=== PATIENT | female | born 1955 | race Caucasian/White ===

== ENCOUNTER 2016-12-27 08:06 | Emergency (ER) | payer MEDICAID ==
[~2016-12-27] VITALS: Ht 182.9 cm; Wt 77.1 kg
[2016-12-27 08:30] VITALS: BP 139/67
[2016-12-27] MEDS ORDERED: DEXAMETHASONE SOD PHOSPHATE 10 MG/ML VIAL ONE (08:46)
[2016-12-27] MEDS ORDERED: DEXAMETHASONE SOD PHOSPHATE 10 MG/ML VIAL IV ONE (09:00)
== END 2016-12-27 09:04 | disposition home or self-care (01) ==
LOC: ER 08:08
DX: J20.9 Acute bronchitis, unspecified (principal); J32.9 Chronic sinusitis, unspecified; R51 Headache; J45.909 Unspecified asthma, uncomplicated; E78.00 Pure hypercholesterolemia, unspecified
CPT/HCPCS: 96374; 99284; A4606; J1100; Z7610

== ENCOUNTER 2017-04-30 12:55 | Emergency (ER) | payer MEDICAID ==
[~2017-04-30] VITALS: Ht 160 cm; Wt 61.2 kg
--- NOTE | 2017-04-30 13:22 | NUR ---
URINE OBTAINED AND SENT TO LAB
[2017-04-30 13:50] LABS: APPEARANCE,URINE Slightly Cloudy (CLEAR); BILIRUBIN,URINE Negative (NEGATIVE); BLOOD, URINE Small Ery/uL (NEGATIVE); COLOR,URINE Yellow (YELLOW); KETONES,URINE 80 (NEGATIVE); LEUKOCYTE ESTERASE ,URINE Small (NEGATIVE); NITRITE, URINE Negative (NEGATIVE); PROTEIN,URINE Trace mg/dl (NEGATIVE); UGLUCOSE Negative (NEGATIVE); UROBILINOGEN,URINE 0.2 EU/dL (0.2)
[2017-04-30 13:55] LABS: BACTERIA,URINE Few /HPF (None Seen); RBC,URINE 81-100 /HPF (0-2); SQUAMOUS EPITHELIAL CELL,UR Few /HPF (None Seen); WBC,URINE 21-50 /HPF (0-3)
[2017-04-30 14:20] VITALS: BP 126/61
--- NOTE | 2017-04-30 14:32 | NUR ---
Patient discharged to home in stable condition. Written and verbal after care instructions given. Prescription given to patient. Patient verbalizes understanding of instruction.
== END 2017-04-30 14:34 | disposition home or self-care (01) ==
LOC: ER 13:04
DX: N39.0 Urinary tract infection, site not specified (principal); E78.00 Pure hypercholesterolemia, unspecified; J45.909 Unspecified asthma, uncomplicated; M54.30 Sciatica, unspecified side; Z98.890 Other specified postprocedural states
CPT/HCPCS: 81000-TC; 87086-TC; 87186-TC; A4606; Z7610

== ENCOUNTER 2017-09-26 10:36 | Emergency (ER) | payer MEDICAID ==
[~2017-09-26] VITALS: Ht 154.9 cm; Wt 47.6 kg
[2017-09-26 10:36] VITALS: BP 157/101
[2017-09-26] MEDS ORDERED: HYDROCODONE/APAP 10/325MG 1 EA TABLET ONE (10:56)
[2017-09-26] MEDS ORDERED: HYDROCODONE/APAP 10/325MG 1 EA TABLET PO ONE (11:00)
== END 2017-09-26 11:10 | disposition home or self-care (01) ==
LOC: ER 10:37
DX: S02.609A Fracture of mandible, unspecified, initial encounter for closed fracture (principal); G89.29 Other chronic pain; E78.00 Pure hypercholesterolemia, unspecified; J45.909 Unspecified asthma, uncomplicated; M54.30 Sciatica, unspecified side; Y04.8XXA Assault by other bodily force, initial encounter; Y93.89 Activity, other specified; Y92.89 Other specified places as the place of occurrence of the external cause; Y99.8 Other external cause status
CPT/HCPCS: 99282; A4606; Z7610

== ENCOUNTER 2017-11-15 11:10 | Emergency (ER) | payer MEDICAID ==
[~2017-11-15] VITALS: Ht 154.9 cm; Wt 48.5 kg
[2017-11-15 11:24] VITALS: BP 178/89
== END 2017-11-15 12:11 | disposition home or self-care (01) ==
LOC: ER 11:11
DX: N39.0 Urinary tract infection, site not specified (principal); E78.00 Pure hypercholesterolemia, unspecified; G89.29 Other chronic pain; J45.909 Unspecified asthma, uncomplicated; F10.10 Alcohol abuse, uncomplicated; M54.40 Lumbago with sciatica, unspecified side
CPT/HCPCS: 87086; 99283; A4606; Z7610

== ENCOUNTER 2019-05-12 09:56 | Emergency (ER) | payer MEDICAID ==
[~2019-05-12] VITALS: Ht 152.4 cm; Wt 52.2 kg
[2019-05-12 09:59] VITALS: BP 122/90
[2019-05-12 10:43] LABS: APPEARANCE,URINE Clear (CLEAR); BILIRUBIN,URINE Negative (NEGATIVE); BLOOD, URINE Negative Ery/uL (NEGATIVE); COLOR,URINE Yellow (YELLOW); KETONES,URINE Negative (NEGATIVE); LEUKOCYTE ESTERASE ,URINE Negative (NEGATIVE); NITRITE, URINE Negative (NEGATIVE); PROTEIN,URINE Negative (NEGATIVE); UGLUCOSE Negative (NEGATIVE); UROBILINOGEN,URINE 0.2 EU/dL (0.2)
[2019-05-12 10:47] LABS: BASOPHILS % (AUTO) 1.1 % (0.0-2.0); EOSINOPHILS % (AUTO) 0.9 % (0.0-6.0); HEMATOCRIT 39 % (33-45); HEMOGLOBIN 13.2 g/dL (11.5-14.8); LYMPHOCYTES # (AUTO) 1.7 /CMM (0.8-4.8); LYMPHOCYTES % (AUTO) 40.5 % (20.0-44.0); MEAN CORPUSCULAR HGB CONC 34 g/dl (31.0-36.0); MEAN CORPUSCULAR VOLUME 97 fL (82-100); MONOCYTES # (AUTO) 0.4 /CMM (0.1-1.30); MONOCYTES % (AUTO) 9.3 % (2.0-12.0); NEUTROPHILS # (AUTO) 2.1 /CMM (1.8-8.9); NEUTROPHILS % (AUTO) 48.2 % (43.0-81.0); PLATELET COUNT (AUTO) 265 /CMM (150-450); WHITE BLOOD COUNT (AUTO) 4.3 K/uL (4.3-11.0)
[2019-05-12 10:48] LABS: CALCIUM, SERUM 9.2 mg/dL (8.5-10.1); CREATININE 0.9 mg/dL (0.6-1.3); POTASSIUM 4.5 mmol/L (3.5-5.1)
== END 2019-05-12 11:31 | disposition home or self-care (01) ==
LOC: ER 10:00
DX: R30.0 Dysuria (principal); E78.00 Pure hypercholesterolemia, unspecified; J45.909 Unspecified asthma, uncomplicated; Z87.440 Personal history of urinary (tract) infections
CPT/HCPCS: 36415; 80048-TC; 81000-TC; 85025-TC; 87086-TC

== ENCOUNTER 2019-10-30 08:05 | Emergency (ER) | payer MEDICAID ==
[~2019-10-30] VITALS: Ht 152.4 cm; Wt 53.5 kg
--- NOTE | 2019-10-30 08:15 | NUR ---
"Accidentally took 1tab of suboxone 8-2mg by mistake" Patient a/ox4, breathing even and unlabored, no sob noted. Needs attended, kept comfortable, attached to the surveillance system monitor.
[2019-10-30 08:42] VITALS: BP 144/87
== END 2019-10-30 08:42 | disposition home or self-care (01) ==
LOC: ER 08:07
DX: Z51.81 Encounter for therapeutic drug level monitoring (principal); E78.00 Pure hypercholesterolemia, unspecified; J45.909 Unspecified asthma, uncomplicated; F10.10 Alcohol abuse, uncomplicated; Y90.9 Presence of alcohol in blood, level not specified; Z98.890 Other specified postprocedural states

== ENCOUNTER 2020-04-13 09:58 | Emergency (ER) | payer MEDICAID ==
[~2020-04-13] VITALS: Ht 149.9 cm; Wt 51.3 kg
--- NOTE | 2020-04-13 10:09 | NUR ---
DR OJEDA AT BEDSIDE FOR EVAL.
--- NOTE | 2020-04-13 11:06 | NUR ---
Patient discharged to home in stable condition. Written and verbal after care instructions given. Patient verbalizes understanding of instruction.
[2020-04-13 11:07] VITALS: BP 134/87
== END 2020-04-13 11:08 | disposition home or self-care (01) ==
LOC: ER 10:01
DX: G56.02 Carpal tunnel syndrome, left upper limb (principal); E78.00 Pure hypercholesterolemia, unspecified; J45.909 Unspecified asthma, uncomplicated; Z98.890 Other specified postprocedural states; Z87.440 Personal history of urinary (tract) infections
CPT/HCPCS: 73110

== ENCOUNTER 2020-06-17 07:52 | Emergency (ER) | payer MEDICAID ==
[~2020-06-17] VITALS: Ht 152.4 cm; Wt 50.8 kg
--- NOTE | 2020-06-17 07:52 | NUR ---
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 PT IS AAOX4, NOT IN RESPIRATORY DISTRESS, HOOKED TO CLEANER SIGNS, KEPT RESTED AND COMFORTABLE. WILL CONTINUE TO MONITOR.
--- NOTE | 2020-06-17 08:00 | NUR ---
IV LINE ESTABLISHED BLOOD DRAWN AND SENT TO LAB.
--- NOTE | 2020-06-17 08:02 | NUR ---
SEEN AND EXAMINED BY .
--- NOTE | 2020-06-17 08:15 | NUR ---
MANAGER SUMMER AT BEDSIDE FOR XRAY.
[2020-06-17 08:23] LABS: BASOPHILS % (AUTO) 0.7 % (0.0-2.0); EOSINOPHILS % (AUTO) 1.3 % (0.0-6.0); HEMATOCRIT 40 % (33-45); HEMOGLOBIN 13.5 g/dL (11.5-14.8); LYMPHOCYTES # (AUTO) 2.7 /CMM (0.8-4.8); LYMPHOCYTES % (AUTO) 43.4 % (20.0-44.0); MEAN CORPUSCULAR HGB CONC 34 g/dl (31.0-36.0); MEAN CORPUSCULAR VOLUME 97 fL (82-100); MONOCYTES # (AUTO) 0.4 /CMM (0.1-1.30); MONOCYTES % (AUTO) 7.2 % (2.0-12.0); NEUTROPHILS # (AUTO) 2.9 /CMM (1.8-8.9); NEUTROPHILS % (AUTO) 47.4 % (43.0-81.0); PLATELET COUNT (AUTO) 288 /CMM (150-450); RED BLOOD CELL COUNT(AUTO) 4.11 MIL/uL (4.0-5.2); WHITE BLOOD COUNT (AUTO) 6.1 K/uL (4.3-11.0)
[2020-06-17 08:29] LABS: CALCIUM, SERUM 9.1 mg/dL (8.5-10.1); CREATININE 0.7 mg/dL (0.6-1.3); POTASSIUM 3.6 mmol/L (3.5-5.1)
--- NOTE | 2020-06-17 09:28 | NUR ---
IV removed. Catheter intact and site benign. Pressure and 4x4 applied to site. No bleeding noted. Patient discharged to home in stable condition. Written and verbal after care instructions given. Patient verbalizes understanding of instruction.
[2020-06-17 09:30] VITALS: BP 121/74
== END 2020-06-17 09:30 | disposition home or self-care (01) ==
LOC: ER 07:56
DX: R07.89 Other chest pain (principal); R42 Dizziness and giddiness; E78.00 Pure hypercholesterolemia, unspecified; J45.909 Unspecified asthma, uncomplicated
CPT/HCPCS: 36415; 71045-TC; 80048-TC; 84484-TC; 85025-TC

== ENCOUNTER 2020-08-28 12:20 | Emergency (ER) | payer MEDICAID ==
[~2020-08-28] VITALS: Ht 152.4 cm; Wt 50.8 kg
--- NOTE | 2020-08-28 12:51 | NUR ---
uriel lange called. [phone]
[2020-08-28 12:52] VITALS: BP 143/89
--- NOTE | 2020-08-28 12:53 | NUR ---
DEE FROM HER CAMPER TO ER BED 12. SHE IS AAOX4. NOT IN RESP DISTRESS, BREATHING EVEN AND UNLABORED. BROUGHT IN FOR ALCOHOL INTOXICATION. PT DID ADMIT TO BE DRINKING ALCOHOL THIS MORNING. PT IS EMOTIONAL AND STATES THAT HS EIS DEPRSSED AND ANGRY ABOUT SOME FAMILY MATTERS. MD WAS AT THE BEDSIDE FOR EVAL. PT DENIES BEING SUICIDAL NOR HOMICIDAL. PT DOES NOT WANT TO STAY. SHE AMBULATED WELL ON STEADY GAIT.
--- NOTE | 2020-08-28 13:05 | NUR ---
pt eloped from the er. pt was last seen walking around her bed, she was in stable gait. md was notified and aware that pt left prior to being discharged
== END 2020-08-28 13:05 | disposition left against medical advice (07) ==
LOC: ER 12:27
DX: F10.10 Alcohol abuse, uncomplicated (principal); F31.9 Bipolar disorder, unspecified; E78.00 Pure hypercholesterolemia, unspecified; J45.909 Unspecified asthma, uncomplicated; Y90.9 Presence of alcohol in blood, level not specified; Z87.440 Personal history of urinary (tract) infections; Z98.890 Other specified postprocedural states

== ENCOUNTER 2023-08-26 12:49 | Emergency (ER) | payer BC, OTHER ==
[~2023-08-26] VITALS: Ht 157.5 cm; Wt 50.3 kg
[2023-08-26] MEDS ORDERED: KETOROLAC TROMETHAMINE 15 MG/ML VIAL ONE (13:21)
[2023-08-26] MEDS ORDERED: KETOROLAC TROMETHAMINE INJ 30 MG/ML VIAL IV ONE (13:30)
[2023-08-26 13:36] LABS: BASOPHILS % (AUTO) 0.5 % (0.0-2.0); EOSINOPHILS % (AUTO) 0.8 % (0.0-6.0); HEMATOCRIT 38 % (33-45); HEMOGLOBIN 12.7 g/dL (11.5-14.8); LYMPHOCYTES # (AUTO) 1.9 K/uL (0.8-4.8); LYMPHOCYTES % (AUTO) 42.8 % (20.0-44.0); MEAN CORPUSCULAR HEMOGLOBIN 32 PG (26.0-33.0); MEAN CORPUSCULAR HGB CONC 34 g/dl (31.0-36.0); MEAN CORPUSCULAR VOLUME 95 fL (82-100); MONOCYTES # (AUTO) 0.4 K/uL (0.1-1.30); MONOCYTES % (AUTO) 9.2 % (2.0-12.0); NEUTROPHILS # (AUTO) 2.1 K/uL (1.8-8.9); NEUTROPHILS % (AUTO) 46.7 % (43.0-81.0); PLATELET COUNT (AUTO) 243 K/uL (150-450); RED BLOOD CELL COUNT(AUTO) 3.98 MIL/uL (4.0-5.2); RED CELL DISTRIBUTION WIDTH 12.8 % (11.5-15.0); WHITE BLOOD COUNT (AUTO) 4.4 K/uL (4.3-11.0)
[2023-08-26 13:47] LABS: CALCIUM, SERUM 9.3 mg/dL (8.5-10.1); CARBON DIOXIDE 26 mmol/L (21-32); CHLORIDE 93 mmol/L (98-107); GLUCOSE 91 mg/dL (74-106); POTASSIUM 4.3 mmol/L (3.5-5.1); SODIUM SERUM 128 mmol/L (136-145); UREA NITROGEN, BLOOD 6 mg/dL (7-18)
[2023-08-26 14:00] LABS: ALANINE AMINOTRANSFERASE 52 U/L (12-78); ALBUMIN 4.7 g/dL (3.4-5.0); ALKALINE PHOSPHATASE 120 U/L (46-116); ASPARTATE AMINOTRANSFERASE 49 U/L (15-37); BILIRUBIN,DIRECT 0.1 mg/dL (0.0-0.2); BILIRUBIN,TOTAL 0.4 mg/dL (0.2-1.0); LIPASE 36 U/L (16-77); NT-PRO BNP 242 pg/mL (0-125); TOTAL PROTEIN, SERUM 7.7 g/dL (6.4-8.2)
[2023-08-26] MEDS ORDERED: POLY17PO4 PO (14:45)
[2023-08-26 14:52] VITALS: BP 122/55; TEMP 98; O2SAT 100
== END 2023-08-26 14:52 | disposition home or self-care (01) ==
LOC: ER 12:59
DX: R10.9 Unspecified abdominal pain (principal); J45.909 Unspecified asthma, uncomplicated; E78.00 Pure hypercholesterolemia, unspecified; F41.9 Anxiety disorder, unspecified; F31.9 Bipolar disorder, unspecified; Z98.890 Other specified postprocedural states
CPT/HCPCS: 99285; 74176; 96374; 71045; 93005; 85025; 80048; 83690; 80076; 36415; 84484; 83880; J1885

== ENCOUNTER 2024-10-04 06:46 | Emergency (ER) | payer BC, MEDICAID ==
[~2024-10-04] VITALS: Ht 152.4 cm; Wt 49.4 kg
[~2024-10-04 06:46] MED LIST: POLY17PO4 PO
[2024-10-04 07:06] VITALS: BP 138/89; TEMP 98.5
[2024-10-04 08:14] VITALS: O2SAT 100
== END 2024-10-04 08:15 | disposition home or self-care (01) ==
LOC: ER 07:10
DX: M54.6 Pain in thoracic spine (principal); M79.10 Myalgia, unspecified site; E78.00 Pure hypercholesterolemia, unspecified; F31.9 Bipolar disorder, unspecified; J45.909 Unspecified asthma, uncomplicated; Z87.440 Personal history of urinary (tract) infections
CPT/HCPCS: 71045-TC